=== PATIENT | male | born 1970 | race Caucasian/White ===

== ENCOUNTER 2016-12-18 22:55 | Observation (INO) | payer SELFPAY ==
--- NOTE | ~2016-12-18 | OP ---
Record Of Operation [facility] [address] [place]. [address] NAME: POLA SIMONS : 68 STATUS : DIS Jitendra PAT#: [id number] AGE: 46 ADM/REG DATE : 12/18/16 MR#: [id number] REPORT SERV DATE: 12/20/16 DICTATED BY: CLAUDIO GRIGGS III DATE: 12/19/16 REPORT STATUS : Draft TRANSCRIBED BY: MODL DATE: 12/19/16 DATE OF PROCEDURE: 12/19/2016 PREOPERATIVE DIAGNOSIS: Right ureteral calculus. POSTOPERATIVE DIAGNOSIS: Right ureteral calculus. PROCEDURE: Cystoscopy, right retrograde pyelogram, right ureteroscopy with rigid and flexible scopes, laser lithotripsy, and laser ablation of stone with stent placement. SURGEON: Claudio Griggs M.D. ANESTHESIA: General. SPECIMEN: Stone fragment. DRAIN: A 6 x 7 x 26 cm double-J ureteral stent. ESTIMATED BLOOD LOSS: 5 mL. INDICATION: Mr. Simons is a 46-year-old white male admitted to the hospital for renal colic secondary to a distal ureteral calculus as seen on CT scan. Options have been discussed with the patient, he wishes to proceed with ureteroscopic management. PROCEDURE IN DETAIL: After consent was obtained, the patient was identified. He was taken to the OR and put to sleep. He was positioned in the low lithotomy position and prepped and draped in the usual fashion. The urethral meatus would not allow insertion of the cystoscope, so the Grant sounds were used to gently dilate to 24-Belizean. A 23-Belizean cystoscope was inserted and advanced along the course of urethra and into the bladder, the anterior urethra and prostatic urethra appeared normal. The bladder was inspected, there were no tumors, stones, or foreign bodies. A cone-tipped ureteral catheter was used to obtain a right retrograde pyelogram, no definitive filling defect was noted; however, the mid and proximal ureter appeared dilated. I passed a Glidewire up the right ureter and used the ureteral access sheath to dilate the transmural ureter. Attempts at rigid cystoscopy were unsuccessful secondary to the curve of the pelvis; therefore, a second guidewire was passed up into the renal collecting system. The rigid scope was removed, a ureteral access sheath was then inserted, it was advanced up above the vessels. The wire was removed, the flexible ureteroscope was advanced into the renal collecting system, it was slowly retracted, no stones were noted. I got down to the sheath and when pulling the sheath out a stone was noted. The 200 Holmium laser fiber was then used to ablate the stone. After an adequate ablation was performed, the sheath was removed. The remaining guidewire was then backloaded through the rigid cystoscope which was advanced into the bladder. A 7 x 26 cm double-J ureteral stent was then advanced over the wire. When in position, the wire was removed, the stent was noted to coil in the renal collecting system as well as the bladder. The bladder was then drained and the scope removed. A string was left attached and was then secured to the penis. The patient was awakened and taken to recovery in stable condition. Record Of Operation [facility] [address] [place]. [address] NAME: POLA SIMONS : 68 STATUS : DIS Jitendra PAT#: [id number] AGE: 46 ADM/REG DATE : 12/18/16 MR#: [id number] REPORT SERV DATE: 12/20/16 DICTATED BY: CLAUDIO GRIGGS III DATE: 12/19/16 REPORT STATUS : Draft TRANSCRIBED BY: QI DATE: 12/19/16 PH/QI Claudio Griggs III, M.D. / [id number] CC: Claudio Griggs III, M.D.
--- NOTE | ~2016-12-18 | HP ---
History And Physical [facility] [place]. [address] NAME: POLA SIMNOS : [birth year] STATUS : ADM Jitendra PAT#: [id number] AGE: 46 ADM/REG DATE : 12/18/16 MR#: [id number] REPORT SERV DATE: 12/19/16 DICTATED BY: GASPER GRIGGS III DATE: 12/19/16 REPORT STATUS : Draft TRANSCRIBED BY: MODL DATE: 12/19/16 DATE OF ADMISSION: 12/18/2016 He is in CDU bed 5. ADMITTING DIAGNOSIS: Right renal colic secondary to right distal ureteral calculus. HISTORY OF PRESENT ILLNESS: Mr. Simons is a 46-year-old white male with no past urological history, who presented to the emergency room at [facility] with right renal colic. A CT scan was obtained, which showed a right distal ureteral calculus with hydroureteronephrosis above. He was transferred for pain management and stone manipulation. He continues to have pain. He states, he has been having pain for approximately three weeks, but that has just became intolerable yesterday. PAST MEDICAL HISTORY: Negative. PAST SURGICAL HISTORY: Appendectomy. HOME MEDICATIONS: No home medications. ALLERGIES: HE HAS NO KNOWN DRUG ALLERGIES. PHYSICAL EXAMINATION: VITAL SIGNS: The patient is afebrile with vital signs are stable. LUNGS: Clear. HEART: Regular. ABDOMEN: Soft. He had does have some right CVA tenderness. CT scan is reviewed from [facility], it shows a right distal ureteral calculus overlying the sacrum with a dilated system above. ASSESSMENT: Right ureteral colic secondary to right distal ureteral calculus. PLAN: Pain control. A ureteroscopic management today. PH/MODL Gasper Griggs III, M.D. / [id number] CC: Gasper Griggs III, M.D.
[2016-12-19 10:47] LABS: BASOPHILS 0.1 %; BASOPHILS ABSOLUTE 0.01 10/3/uL (0.0-0.16); EOSINOPHILS 0.1 %; EOSINOPHILS ABSOLUTE 0.01 10/3/uL (0.0-0.53); HEMATOCRIT 42.4 % (40.0-51.0); HEMOGLOBIN 14.9 g/dL (13.6-17.8); IMMATURE GRANULOCYTES 0.3 %; IMMATURE GRANULOCYTES ABSOLUTE 0.05 10/3/uL (0.0-0.11); LYMPHOCYTES 6.5 %; LYMPHOCYTES ABSOLUTE 0.94 10/3/uL (0.67-4.30); MEAN CORPUS HGB CONC 35.1 g/dL (32.0-36.0); MEAN CORPUSCULAR HEMOGLOB 29.6 pg (26.0-34.0); MEAN CORPUSCULAR VOLUME 84.3 fL (80-100); MEAN PLATELET VOLUME 10.8 fL (9.2-13.0); MONOCYTES 9.8 %; MONOCYTES ABSOLUTE 1.42 10/3/uL (0.21-1.20); NEUTROPHILS 83.2 %; NEUTROPHILS ABSOLUTE 12.01 10/3/uL (2.02-8.40); PLATELET COUNT 66 10/3/uL (150-400); RBC DISTRIBUTION WIDTH 14.6 % (12.0-16.0); RED CELL COUNT 5.03 10/6/uL (4.7-6.1); WHITE BLOOD CELLS 14.4 10/3/uL (4.5-10.5)
[2016-12-19 11:00] LABS: BUN (BLOOD UREA NITROGEN) 20 MG/DL (6-23); CALCIUM, SERUM 8.7 MG/DL (8.5-10.4); CHLORIDE, SERUM 105 MMOL/L (96-112); CO2 (CARBON DIOXIDE) 28 MMOL/L (24-34); CREATININE 1.21 MG/DL (0.70-1.30); GFR AFRICAN AMERICAN 82 ML/MIN (>=60); GFR NON AFRICAN AMERICAN 71 ML/MIN (>=60); GLUCOSE, SERUM 125 MG/DL (60-99); POTASSIUM, SERUM 3.5 MMOL/L (3.5-5.3); SODIUM, SERUM 140 MMOL/L (135-148)
[2016-12-19 11:06] LABS: MANUAL DIFF NO %
[2016-12-19 11:08] LABS: PLATELET ESTIMATE DEC (ADEQUATE); RBC MORPHOLOGY NORM (NORMAL)
[2016-12-24 23:25] LABS: STONE COMPOSITION TWO DNR (())
== END 2016-12-19 20:25 | disposition home or self-care (01) ==
LOC: CDU1 22:55 → SDC/OF 12-19 19:23
PROVIDERS: Urology
PROC: 0TF68ZZ Fragmentation in Right Ureter, Via Natural or Artificial Opening Endoscopic (ICD-10-PCS; principal; 2016-12-18)
PROC: 0T768DZ Dilation of Right Ureter with Intraluminal Device, Via Natural or Artificial Opening Endoscopic (ICD-10-PCS; 2016-12-18)
PROC: BT1DYZZ Fluoroscopy of Right Kidney, Ureter and Bladder using Other Contrast (ICD-10-PCS; 2016-12-18)
DX: N20.1 Calculus of ureter (principal); E66.01 Morbid (severe) obesity due to excess calories; G47.33 Obstructive sleep apnea (adult) (pediatric); Z90.49 Acquired absence of other specified parts of digestive tract
CPT/HCPCS: 74000; 74420; 80048; 82365; 85025; C1769; C1894; C2617; G0378; J0330; J2175; J2250; J2270; J2370; J2405; J3010; Q9967